=== PATIENT | male | born 1955 | race African-American/Black ===

== ENCOUNTER 2016-12-26 10:52 | Emergency (ER) | payer OTHER ==
[~2016-12-26] VITALS: Ht 177.8 cm; Wt 82.0 kg
[~2016-12-26 10:52] MED LIST: DICL50 PO; DOXY100T PO; SULF-154 PO
[2016-12-26 11:05] VITALS: BP 127/78; PULSE 98; RESP 20; TEMP 99.2; O2SAT 98
[2016-12-26] MEDS ORDERED: HTN MED PO (11:20)
[2016-12-26] MEDS ORDERED: MOBI15TA PO (11:20)
[2016-12-26] MEDS ORDERED: METO25TA3 PO (11:20)
[2016-12-26] MEDS ORDERED: SODIUM CHLOR 0.9% 1000 ML INJ 1,000 ML IV ONE (11:47)
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
[2016-12-26] MEDS ORDERED: ACETAMINOPHEN/HYDROcodone 325 MG/5 MG TAB PO ONE (12:00)
[2016-12-26] MEDS ORDERED: SODIUM CHLORIDE 0.9% FLUSH 10 ML FLUSH IVF PRN (12:00)
[2016-12-26 12:31] LABS: AUTOMATED NEUTROPHIL # 3.3 TH/MM3 (1.8-7.7); BASOPHIL % 0.3 % (0.0-2.0); EOSINOPHIL % 0.2 % (0.0-4.0); HEMO FLAGS DIFF FINAL; LYMPH % 22.7 % (9.0-44.0); LYMPHOCYTE # 1.1 TH/MM3 (1.0-4.8); MEAN CELL VOLUME 92.2 FL (80.0-100.0); MEAN CORPUSCULAR HEMOGLOBIN 30.4 PG (27.0-34.0); MEAN CORPUSCULAR HGB CONC 32.9 % (32.0-36.0); MONO % 8.7 % (0.0-8.0); NEUT % 68.1 % (16.0-70.0); PLATELET COUNT 188 TH/MM3 (150-450); RED BLOOD COUNT 4.99 MIL/MM3 (4.50-5.90); RED CELL DISTRIBUTION WIDTH 14.5 % (11.6-17.2); WHITE BLOOD COUNT 4.9 TH/MM3 (4.0-11.0)
[2016-12-26 12:38] LABS: PROTHROMBIN TIME - PATIENT 10.9 SEC (9.8-11.6)
[2016-12-26 12:42] LABS: APTT (PATIENT) 25.4 SEC (24.3-30.1)
[2016-12-26 13:15] VITALS: RESP 17
[2016-12-26 13:19] LABS: ALT (GPT) 42 U/L (12-78); ANION GAP 9 MEQ/L (5-15); AST (GOT) 49 U/L (15-37); BICARBONATE 24.8 MEQ/L (21.0-32.0); CHLORIDE 102 MEQ/L (98-107); GLOMERULAR FILTRATION RATE 87 ML/MIN (>89); MAGNESIUM 1.8 MG/DL (1.5-2.5); POTASSIUM 4.4 MEQ/L (3.5-5.1); SODIUM (NA) 136 MEQ/L (136-145)
[2016-12-26 13:22] LABS: ALKALINE PHOSPHATASE 43 U/L (45-117); CREATINE KINASE 194 U/L (39-308); TOTAL BILIRUBIN ADULT 0.4 MG/DL (0.2-1.0)
[2016-12-26 13:24] LABS: BLOOD UREA NITROGEN 21 MG/DL (7-18)
[2016-12-26 13:40] LABS: CKMB 1.4 NG/ML (0.5-3.6)
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
--- NOTE | 2016-12-26 13:52 | RADRPT ---
EXAM DATE/TIME: 12/26/2016 12:45 [facility] COMPARISON: No previous studies available for comparison. INDICATIONS : Chest pain post fall. MEDICAL HISTORY : None. SURGICAL HISTORY : None. ENCOUNTER: Initial ACUITY: 1 day PAIN SCORE: 8/10 LOCATION: Right upper chest FINDINGS: The exam demonstrates a small area of linear atelectasis in the right midlung field. The lungs are ot herwise clear. The heart is normal in size. The bony structures are intact. CONCLUSION: Small area of linear atelectasis on the right. The exam is otherwise unremarkable. Brice Almaguer MD on December 26, 2016 at 13:49 Board Certified Radiologist. This report was verified electronically.
--- NOTE | 2016-12-26 18:57 | EKG ---
Date Performed: 12/26/2016 Time Performed: 11:08:20 PTAGE: 61 years EKG: Sinus rhythm POSSIBLE LEFT ATRIAL ENLARGEMENT BORDERLINE ECG NO PREVIOUS TRACING DOCTOR: Hector Rome Interpretating Date/Time 12/26/2016 18:55:41
== END 2016-12-26 14:31 | disposition home or self-care (01) ==
LOC: NEPC 10:52
DX: T67.1XXA Heat syncope, initial encounter (principal); R07.89 Other chest pain; F17.210 Nicotine dependence, cigarettes, uncomplicated; I10 Essential (primary) hypertension
CPT/HCPCS: 70450; 71010; 80053; 82550; 82552; 83735; 83880; 84484; 85025; 85610; 85730; 93005; 96360; 99285; J7030

== ENCOUNTER → 2017-03-21 | Day surgery (SDC) | payer OTHER ==
[~2017-03-21] VITALS: Ht 177.8 cm; Wt 79.8 kg
[~2017-03-21] MED LIST changes: +*ONDANSETRON 4 MG VIAL PERIprocedural Use ONLY ONE; +*morphine SULFATE 8 MG/ML PERIprocedure ONLY ONE; +ACETAMINOPHEN 1000 MG/100 ML 0 ML IV ONE; +ACETAMINOPHEN 1000 MG/100 ML 100 ML IV SCH; +AMLO5TAB2 PO; +BUPIVACAINE/EPINEPHRINE 0.25% 50 ML VIAL ONE; +CHLORHEXIDINE GLUCONATE 2 % 1 PACK (2 CLOTHS) TOPICAL PRN; +DEXAMETHASONE SOD PHOS 4 MG/ML VIAL IV ONE; -DICL50 PO; +DO NOT ADM ANY ANTICOAGULANT DRUGS PRN; -DOXY100T PO; +GLYCOPYRROLATE 1 MG/5 ML SYRINGE IV PUSH ONE; +IOHEXOL 300 MG/ML 50 ML BTL (for RAD DIAG) IVCONTRAST ONE; +KETOROLAC TROMETHAMINE 30 MG/ML (IVP) VIAL IV PUSH ONE; +LACTATED RINGER'S 1000 ML INJ 1,000 ML IV ONE; +LACTATED RINGER'S 1000 ML IV PRN; +LEVO750T3 PO; +LIDOCAINE HCL 1% PF 5 ML AMPULE OTHER ONE; +METO50TA PO; +METOPROLOL TARTRATE 25 MG TAB PO PRN; +METR-1 PO; +MOBI15TA PO; +MORPHINE SULFATE 4 MG/ML INJ IV PUSH PRN; +NEOSTIGMINE 3 MG/3 ML SYR IV ONE; +ONDANSETRON HCL 4 MG/2 ML VIAL IV PUSH ONE; +ONDANSETRON HCL 4 MG/2 ML VIAL IV PUSH PRN; +OXYC1TAB63 PO; +POVIDONE IODINE 5% (ANTISEPSIS KIT) 4 APPLICATIONS EACH NARE PRN; +PROMETHAZINE INJ 25 MG/ML VIAL ONE; +PROPOFOL 200 MG/20 ML AMP IV ONE; +ROCURONIUM INJ 50 MG/5 ML SYRINGE IV PUSH ONE; +SODIUM CHLORID 0.9% 500 ML IV PRN; -SULF-154 PO; +ZOFR4TAB3 SL; +ceFAZolin 2 GM PREMIX 50 ML IV SCH; +diphenhydrAMINE HCL 50 MG/ML VIAL ONE; +ePHEDrine/NS 25 MG/5 ML SYR IV ONE; +metroNIDAZOLE 500 MG INJ 100 ML IV SCH; +oxyCODONE/ACETAMINOPHEN 5 MG/325 MG TAB PO PRN
--- NOTE | 2017-03-21 11:26 | PD.OP ---
cc: Willie Causey MD Operative Report Date of Surgery: Mar 21, 2017 Preoperative Diagnosis: (1) Gallbladder mass (2) Umbilical hernia (3) Ventral hernia Postoperative Diagnosis: (1) Umbilical hernia (2) Ventral hernia (3) Gallbladder mass Procedure: laparoscopic cholecystectomy with intraoperative cholangiogram [facility] Surgeon: Willie Causey Diabetes Manager(s): Bayron HOGUE Operation and Findings: EBL: 10cc Operative findings: The gallbladder was thin-walled. The fundal mass seen on MRI appeared benign and was easily dissected from the liver bed. The patient had an umbilical hernia and a right upper quadrant ventral hernia. Both had incarcerated fat. Unfortunately, bile was spilled from the gallbladder during dissection and, therefore, I opted not to proceed with mesh repair. The patient will be brought back within a week for ventral hernia repair with mesh. The intraoperative cholangiogram revealed dilated common bile duct. Procedure in detail: The patient was taken to the operating room placed in supine position. Gen. endotracheal anesthesia was induced and the abdomen was prepped and draped in usual sterile fashion. The arms were tucked. A surgical timeout was performed to verify correct patient procedure and site. Local anesthetic was injected in skin and subcutaneous tissues tissue in the left upper abdomen and a 5 mm incision made. The abdomen was entered directly with the laparoscope and insufflated to 15 mmHg with CO2 gas which the patient tolerated well. He was placed in reverse Trendelenburg position. A 5 mm port was placed just to the right of the umbilicus. A 12 mm port was placed in the epigastrium and a 5 mm port in the right upper abdomen and a 5 mm port in the right lateral abdomen. The dome of the gallbladder was grasped and retracted cephalad. The gallbladder was thin-walled. The mass seen on MRI in the fundus of the gallbladder did not appear worrisome. It was not firm or invading the liver. Omental adhesions to the gallbladder were taken down with the Harmonic scalpel. Unfortunately, a hole was made in the side of the gallbladder and bile spilled. No stones spilled.The cystic duct and artery were dissected carefully using the Harmonic scalpel. The cystic artery was divided with the Harmonic scalpel. The cystic duct was seen to be clearly entering the gallbladder and it was cut [facility] across. The cholangiogram catheter was placed through a separate stab incision in the right upper quadrant into the cystic duct. A 1-1 ratio of Omnipaque and saline was injected through the catheter and fluoroscopy performed. There were no filling defects. The duodenum filled easily. The right and left hepatic ducts were visible. The common duct was significantly dilated. 2 clips were then placed proximally and one distally on the cystic duct and it was transected. The gallbladder was taken off of the liver bed using a harmonic scalpel. There was no leakage from the cystic duct and the liver bed was dry. The right upper quadrant was copiously irrigated. I did take down preperitoneal fat in the epigastrium including a portion of the falciform ligament. A 1-2 cm umbilical hernia was identified with preperitoneal fat incarcerated. The incarcerated fat was reduced. In the right upper abdomen the internal hernia was identified and the preperitoneal fat was incarcerated. I decided not to perform a mesh repair at this time due to spillage of bile from the gallbladder. Therefore, I left the preperitoneal fat incarcerated in the right upper quadrant hernia. I will plan to perform laparoscopic ventral hernia repair with mesh within the next week. At this point, the trochars were removed and the abdomen desufflated. Skin was closed with subcuticular 4-0 Monocryl and Steri-Strips. The patient tolerated the procedure well and was extubated and taken to PACU in stable condition. Willie Causey MD Mar 21, 2017 11:26
[2017-03-21 13:15] VITALS: BP 120/75; PULSE 63; RESP 20; TEMP 97; O2SAT 94
--- NOTE | 2017-03-22 08:40 | RADRPT ---
EXAM DATE/TIME: 03/21/2017 09:58 [facility] COMPARISON: No previous studies available for comparison. INDICATIONS : Obstruction. FLUORO TIME: 1.25 minutes IMAGE COUNT: 1 MEDICAL HISTORY : None. SURGICAL HISTORY : None. ENCOUNTER: Initial ACUITY: 1 day PAIN SCORE: Non-responsive. LOCATION: Right upper quadrant PROCEDURE: CHOLANGIOGRAM, OPERATIVE 1. Intraoperative cholangiogram. In the operating room, the cystic duct stump was injected and radiographs obtained. The examination demonstrates a lesion of the cystic duct with opacification of the common bile duct. The proximal common bile duct is mildly dilated and the common hepatic duct is dilated. The central a spect of the left and right intrahepatic ducts are mildly distended but demonstrate no significant ab normality. The distal half of the common bile duct demonstrates an ovoid filling defect that moves sl ightly during real-time imaging. Contrast flows easily into the second portion of the duodenum. There is reflux of contrast out of the cystic duct into either the remaining gallbladder or representing e xtravasation. CONCLUSION: 1. There is an ovoid filling defect in the distal common bile duct which likely represents an air duncan ble. Review of the outside MRI demonstrated no stone within the common bile duct or gallbladder. 2. Dilated common bile and common hepatic duct. Cal Abraham MD on March 22, 2017 at 8:28 Board Certified Radiologist. This report was verified electronically.
== END | disposition home or self-care (01) ==
LOC: HSDC 05:15 → UNDOADMIN 05:15 → HSDI 05:15 → EDSTATUS 08:30
PROVIDERS: ATTEND Surgery
DX: K80.20 Calculus of gallbladder without cholecystitis without obstruction (principal); K82.8 Other specified diseases of gallbladder; K43.9 Ventral hernia without obstruction or gangrene; K42.9 Umbilical hernia without obstruction or gangrene
CPT/HCPCS: 00790; 47562; 74300; 88304; J0131; J0690; J1100; J1200; J1885; J2270; J2405; J2550; J2710; J3010; J7120; Q9967

== ENCOUNTER 2017-03-22 16:54 | Inpatient (IN) | payer OTHER ==
[~2017-03-22] VITALS: Ht 177.8 cm; Wt 79.9 kg
[~2017-03-22 16:54] MED LIST changes: -*ONDANSETRON 4 MG VIAL PERIprocedural Use ONLY ONE; -*morphine SULFATE 8 MG/ML PERIprocedure ONLY ONE; -ACETAMINOPHEN 1000 MG/100 ML 0 ML IV ONE; -ACETAMINOPHEN 1000 MG/100 ML 100 ML IV SCH; -BUPIVACAINE/EPINEPHRINE 0.25% 50 ML VIAL ONE; -CHLORHEXIDINE GLUCONATE 2 % 1 PACK (2 CLOTHS) TOPICAL PRN; -DO NOT ADM ANY ANTICOAGULANT DRUGS PRN; -IOHEXOL 300 MG/ML 50 ML BTL (for RAD DIAG) IVCONTRAST ONE; -KETOROLAC TROMETHAMINE 30 MG/ML (IVP) VIAL IV PUSH ONE; -LACTATED RINGER'S 1000 ML INJ 1,000 ML IV ONE; -LACTATED RINGER'S 1000 ML IV PRN; -LEVO750T3 PO; -METOPROLOL TARTRATE 25 MG TAB PO PRN; -METR-1 PO; +MIDAZOLAM HCL 2 MG/2 ML VIAL IV ONE; -MOBI15TA PO; -MORPHINE SULFATE 4 MG/ML INJ IV PUSH PRN; -ONDANSETRON HCL 4 MG/2 ML VIAL IV PUSH PRN; +PHENYLEPH/NS 1000 MCG/10 ML SYR IV ONE; -POVIDONE IODINE 5% (ANTISEPSIS KIT) 4 APPLICATIONS EACH NARE PRN; -PROMETHAZINE INJ 25 MG/ML VIAL ONE; -SODIUM CHLORID 0.9% 500 ML IV PRN; +SUCCINYLCHOLINE CHLORIDE 100 MG/5 ML SYRINGE IV PUSH ONE; -ZOFR4TAB3 SL; -ceFAZolin 2 GM PREMIX 50 ML IV SCH; -diphenhydrAMINE HCL 50 MG/ML VIAL ONE; -ePHEDrine/NS 25 MG/5 ML SYR IV ONE; -metroNIDAZOLE 500 MG INJ 100 ML IV SCH; -oxyCODONE/ACETAMINOPHEN 5 MG/325 MG TAB PO PRN
[2017-03-22 16:55] VITALS: BP 138/74; PULSE 80; RESP 20; TEMP 98.9; O2SAT 99
[2017-03-22 17:10] VITALS: BP 134/81; PULSE 91; RESP 20; TEMP 98.4
[2017-03-22] MEDS ORDERED: HYDROmorphone HCL PF 1 MG/ML VIAL IVS ONE (17:15)
[2017-03-22] MEDS ORDERED: SODIUM CHLOR 0.9% 1000 ML INJ 1,000 ML IV ONE ×2 (17:15→21:30)
[2017-03-22] MEDS ORDERED: ONDANSETRON HCL 4 MG/2 ML VIAL IV PUSH ONE ×2 (17:15→20:00)
[2017-03-22] MEDS: SODIUM CHLORIDE 0.9% FLUSH 10 ML FLUSH IV FLUSH PRN (17:27)
--- NOTE | 2017-03-22 17:27 | PD ---
HPI Chief Complaint: Nausea/ vomiting Time Seen by Provider: 17:03 Travel History International Travel<30 days: No Contact w/Intl Traveler<30days: No Traveled to known affect area: No History of Present Illness HPI 61-year-old male presents to the ED for evaluation of 10/10 abdominal pain with nausea and vomiting. Onset "a few hours ago" worsening throughout the day. Patient endorses a few episodes of streaky hematemesis. He has not had a bowel movement since his surgery. He also complains of left-sided chest pain without associated palpitations, shortness of breath, cough. Patient underwent laparoscopic cholecystectomy with Dr. Causey yesterday. His called the office today and was referred to the ED. PFSH Past Medical History Cancer: No Cardiovascular Problems: No Diabetes: No Diminished Hearing: Yes (DOES NOT WEAR HEARING AIDS) Endocrine: No Genitourinary: No Hepatitis: No Hiatal Hernia: No Hypertension: Yes Immune Disorder: No Musculoskeletal: Yes (arthritis, chronic back pain) Neurologic: No (recent syncopal episode from heat-2 months ago) Psychiatric: No Reproductive: No Respiratory: No Thyroid Disease: No Past Surgical History Abdominal Surgery: Yes (UMBILICAL HERNIA, CHOLECYSTECTOMY) AICD: No Cardiac Surgery: No Ear Surgery: No Endocrine Surgery: No Eye Surgery: No Genitourinary Surgery: No Gynecologic Surgery: No Joint Replacement: No Oral Surgery: No Pacemaker: No Thoracic Surgery: No Social History Alcohol Use: Yes (RARE) Tobacco Use: Yes (2 CIGARETTES DAILY) Substance Use: Yes (marijuana) Allergies-Medications (Allergen,Severity, Reaction): Uncoded Allergies: SHELLFISH (Allergy, Severe, Anaphylaxis, 03/21/17) Reported Meds & Prescriptions Reported Meds & Active Scripts Active Oxycodone-Acetaminophen 5-325 mg Tab 1-2 Tab PO Q4H PRN Reported Amlodipine (Amlodipine Besylate) 5 Mg Tab 5 Mg PO DAILY Metoprolol Tartrate 50 Mg Tab 50 Mg PO BID Review of Systems Except as stated in HPI: all other systems reviewed are Neg Physical Exam Narrative GENERAL: Well-nourished, well-developed ill-appearing black male in no acute distress. SKIN: Focused skin assessment warm/dry. There is a warm, raised, tender, erythematous area below the umbilicus measuring approximately 8 x 10 cm. HEAD: Normocephalic. EYES: No scleral icterus. No injection or drainage. NECK: Supple, trachea midline. No JVD or lymphadenopathy. CARDIOVASCULAR: Regular rate and rhythm without murmurs, gallops, or rubs. RESPIRATORY: Breath sounds equal bilaterally. No accessory muscle use. GASTROINTESTINAL: Abdomen soft, mildly distended, diffusely tender, painful bulge noted superior and right of the umbilicus. Hypoactive bowel sounds. Exam somewhat limited by the patient's pain. MUSCULOSKELETAL: No cyanosis, or edema. BACK: Nontender without obvious deformity. No CVA tenderness. Data Data Last Documented VS Vital Signs Date Time Temp Pulse Resp B/P (MAP) Pulse Ox O2 Delivery O2 Flow Rate FiO2 03/22/17 17:28 98.4 74 16 119/77 (91) 99 Nasal Cannula 2.00 Orders Orders ^ Insert Iv (03/22/17 17:03) Ondansetron Inj (Zofran Inj) (03/22/17 17:15) Sodium Chlor 0.9% 1000 Ml Inj (Ns 1000 M (03/22/17 17:15) Complete Blood Count With Diff (03/22/17 17:14) Comprehensive Metabolic Panel (03/22/17 17:14) Lactic Acid (03/22/17 17:14) Prothrombin Time / Inr (Pt) (03/22/17 17:14) Act Partial Throm Time (Ptt) (03/22/17 17:14) Urinalysis - C+S If Indicated (03/22/17 17:14) Ecg Monitoring (03/22/17 17:14) Oximetry (03/22/17 17:14) Sodium Chloride 0.9% Flush (Ns Flush) (03/22/17 17:15) Electrocardiogram (03/22/17 17:14) Hydromorphone Pf Inj (Dilaudid Pf Inj) (03/22/17 17:15) Ct Abd/Pel W Iv Contrast(Rout) (03/22/17 17:18) Blood Culture (03/22/17 17:21) Ckmb (Isoenzyme) Profile (03/22/17 17:24) Troponin I (03/22/17 17:24) Ct Pulmonary Angiogram (03/22/17 17:25) CKMB (03/22/17 17:20) CKMB% (03/22/17 17:20) Chest, Single Ap (03/22/17 ) Ondansetron Inj (Zofran Inj) (03/22/17 20:00) Hydromorphone Pf Inj (Dilaudid Pf Inj) (03/22/17 20:00) Iohexol 350 Inj (Omnipaque 350 Inj) (03/22/17 20:42) Admit Order (Ed Use Only) (03/22/17 21:15) Metronidazole 500 Mg Inj (Flagyl 500 Mg (03/22/17 21:15) Levofloxacin 750 Mg Premix Inj (Levaquin (03/22/17 21:15) Labs Laboratory Tests Test 03/22/17 17:20 03/22/17 19:00 White Blood Count 12.3 TH/MM3 Red Blood Count 5.28 MIL/MM3 Hemoglobin 16.5 GM/DL Hematocrit 48.8 % Mean Corpuscular Volume 92.5 FL Mean Corpuscular Hemoglobin 31.2 PG Mean Corpuscular Hemoglobin Concent 33.7 % Red Cell Distribution Width 13.7 % Platelet Count 241 TH/MM3 Mean Platelet Volume 7.8 FL Neutrophils (%) (Auto) 73.0 % Lymphocytes (%) (Auto) 20.0 % Monocytes (%) (Auto) 6.6 % Eosinophils (%) (Auto) 0.0 % Basophils (%) (Auto) 0.4 % Neutrophils # (Auto) 8.9 TH/MM3 Lymphocytes # (Auto) 2.5 TH/MM3 Monocytes # (Auto) 0.8 TH/MM3 Eosinophils # (Auto) 0.0 TH/MM3 Basophils # (Auto) 0.0 TH/MM3 CBC Comment DIFF FINAL Differential Comment Prothrombin Time 11.4 SEC Prothromb Time International Ratio 1.0 RATIO Activated Partial Thromboplast Time 26.7 SEC Lactic Acid Level 3.0 mmol/L Total Creatine Kinase 566 U/L Creatine Kinase MB 1.4 NG/ML Creatine Kinase MB % 0.2 % Troponin I LESS THAN 0.02 NG/ML Blood Urea Nitrogen 12 MG/DL Creatinine 1.01 MG/DL Random Glucose 99 MG/DL Total Protein 7.1 GM/DL Albumin 3.2 GM/DL Calcium Level 8.5 MG/DL Alkaline Phosphatase 60 U/L Aspartate Amino Transf (AST/SGOT) 69 U/L Alanine Aminotransferase (ALT/SGPT) 82 U/L Total Bilirubin 0.4 MG/DL Sodium Level 138 MEQ/L Potassium Level 4.0 MEQ/L Chloride Level 102 MEQ/L Carbon Dioxide Level 27.6 MEQ/L Anion Gap 8 MEQ/L Estimat Glomerular Filtration Rate 91 ML/MIN MDM Medical Decision Making Medical Screen Exam Complete: Yes Emergency Medical Condition: Yes Differential Diagnosis Paralytic ileus versus incarcerated hernia versus peritonitis versus bowel obstruction versus pneumonia versus PE versus other Narrative Course 61-year-old male presents to the ED for evaluation of 10/10 abdominal pain with nausea and vomiting. Onset "a few hours ago" worsening throughout the day. Patient endorses a few episodes of streaky hematemesis. He has not had a bowel movement since his surgery. He also complains of left-sided chest pain without associated palpitations, shortness of breath, cough. Patient underwent laparoscopic cholecystectomy with Dr. Causey yesterday. His called the office today and was referred to the ED. patient's afebrile on presentation. Physical exam reveals an ill-appearing black male in no acute distress. He has diffuse tenderness of the abdomen with a noted tender mass just superior and to the right of the umbilicus. Also notable for small bulge of the umbilicus with a large surrounding area of warm and tender erythema. Exam was somewhat limited due to the patient's discomfort. IV was established. Patient was administered 1 mg morphine, 4 mg Zofran, 1 L normal saline. I reviewed Dr. robert operative note which reveals that there was some bile spillage during the laparoscopic cholecystectomy. Dr. Causey was unable to perform the planned umbilical and ventral hernia repairs. EKG rate 90, sinus rhythm. ME interval 158, QRS 74, QTC 394. Normal axis. No ST changes. Reviewed by Dr. Parker. Cardiac enzymes negative 1 CXR: No acute disease. CBC: WBC 12.3. Hemoglobin 16.5. INR 1.0. Lactic acid 3.0. CMP: AST 69, ALT 82. UA: Pending. CT abdomen and pelvis: 1. Small bowel obstruction secondary to a herniated loop of small bowel within an umbilical hernia. There are 2 umbilical hernias. The more inferior umbilical hernia contains the herniated small bowel. The slightly more cephalad umbilical hernia contains omental fat. 2. Dilatation of the intrahepatic and extrahepatic biliary system as detailed above. This is unchanged from the intraoperative study. This is more prominent than what is expected in a post cholecystectomy patient. At some point an MRCP would be beneficial to further evaluate. 3. 2.3 cm left adrenal gland nodule not consistent with a lipid rich adenoma. This could relate to a lipid poor adenoma or lesion of other etiology. Outpatient MRI is suggested to further evaluate. CTA chest: No PE, bibasilar atelectasis per radiology read. I discussed the results of the CT with the patient and his family. Dr. Causey is at bedside and plans surgery tonight. Patient will be admitted to the surgical service. Please see their notes for disposition. Vonda Chaney Mar 22, 2017 17:27
[2017-03-22 17:28] VITALS: BP 119/77; PULSE 74; PULSE 82; RESP 16; TEMP 98.4; O2SAT 99
--- NOTE | 2017-03-22 17:44 | PD ---
Physical Exam Date Seen by Provider: Mar 22, 2017 Narrative Vomiting Data Data Last Documented VS Vital Signs Date Time Temp Pulse Resp B/P (MAP) Pulse Ox O2 Delivery O2 Flow Rate FiO2 03/22/17 17:28 98.4 74 16 119/77 (91) 99 Nasal Cannula 2.00 Orders Orders ^ Insert Iv (03/22/17 17:03) Ondansetron Inj (Zofran Inj) (03/22/17 17:15) Sodium Chlor 0.9% 1000 Ml Inj (Ns 1000 M (03/22/17 17:15) Complete Blood Count With Diff (03/22/17 17:14) Comprehensive Metabolic Panel (03/22/17 17:14) Lactic Acid (03/22/17 17:14) Prothrombin Time / Inr (Pt) (03/22/17 17:14) Act Partial Throm Time (Ptt) (03/22/17 17:14) Urinalysis - C+S If Indicated (03/22/17 17:14) Ecg Monitoring (03/22/17 17:14) Oximetry (03/22/17 17:14) Sodium Chloride 0.9% Flush (Ns Flush) (03/22/17 17:15) Electrocardiogram (03/22/17 17:14) Hydromorphone Pf Inj (Dilaudid Pf Inj) (03/22/17 17:15) Ct Abd/Pel W Iv Contrast(Rout) (03/22/17 17:18) Blood Culture (03/22/17 17:21) Ckmb (Isoenzyme) Profile (03/22/17 17:24) Troponin I (03/22/17 17:24) Ct Pulmonary Angiogram (03/22/17 17:25) MDM Supervised Visit with STEWART: Yes Narrative Course I, Dr. Parker, have reviewed the advance practice practitioner's documentation and am in agreement, met with the patient face to face, made the diagnosis, and the medical decision making was done by me. *My assessment and Findings: This patient is having frequent emesis. He looks very uncomfortable. He has a fairly large area of erythema one of the surgical wounds below the umbilicus. He is complaining with both chest pain and abdominal pain/vomiting. He is status post surgery yesterday. He will have a CT for PE as well as a CT of his abdomen and pelvis. Please see Vonda Chaney PA-C's note for results of laboratory and radiographic evaluation, ED course, final diagnosis and disposition Ambika Parker MD Mar 22, 2017 17:44
[2017-03-22 17:55] LABS: AUTOMATED NEUTROPHIL # 8.9 TH/MM3 (1.8-7.7); BASOPHIL % 0.4 % (0.0-2.0); HEMATOCRIT 48.8 % (39.0-51.0); HEMO FLAGS DIFF FINAL; LYMPHOCYTE # 2.5 TH/MM3 (1.0-4.8); MEAN CELL VOLUME 92.5 FL (80.0-100.0); MEAN CORPUSCULAR HEMOGLOBIN 31.2 PG (27.0-34.0); MEAN CORPUSCULAR HGB CONC 33.7 % (32.0-36.0); MONO % 6.6 % (0.0-8.0); PLATELET COUNT 241 TH/MM3 (150-450); RED BLOOD COUNT 5.28 MIL/MM3 (4.50-5.90); RED CELL DISTRIBUTION WIDTH 13.7 % (11.6-17.2); WHITE BLOOD COUNT 12.3 TH/MM3 (4.0-11.0)
[2017-03-22 18:01] LABS: APTT (PATIENT) 26.7 SEC (24.3-30.1); PROTHROMBIN TIME - PATIENT 11.4 SEC (9.8-11.6)
[2017-03-22 18:09] LABS: CREATINE KINASE 566 U/L (39-308)
[2017-03-22 18:22] LABS: CKMB 1.4 NG/ML (0.5-3.6)
[2017-03-22 19:00] VITALS: BP 143/84; PULSE 71; RESP 16; O2SAT 98
--- NOTE | 2017-03-22 19:06 | RADRPT ---
EXAM DATE/TIME: 03/22/2017 19:00 [facility] COMPARISON: CHEST SINGLE AP, December 26, 2016, 12:45. INDICATIONS : Shortness of breath. MEDICAL HISTORY : None. SURGICAL HISTORY : None. ENCOUNTER: Initial ACUITY: 1 day PAIN SCORE: 0/10 LOCATION: Bilateral chest FINDINGS: A single view of the chest demonstrates the lungs to be symmetrically aerated without evidence of mas s, infiltrate or effusion. Linear scarring within the right midlung. The cardiomediastinal contours a re unremarkable. Osseous structures are intact. CONCLUSION: No acute disease. Angelo Hester Jr., MD on March 22, 2017 at 19:04 Board Certified Radiologist. This report was verified electronically.
--- NOTE | 2017-03-22 19:32 | EKG ---
Date Performed: 03/22/2017 Time Performed: 17:14:57 PTAGE: 61 years EKG: Sinus rhythm LEFT ATRIAL ENLARGEMENT ABNORMAL ECG INTERPRETATION BASED ON A DEFAULT AGE OF 40 YEARS No significan t change from prior electrocardiogram. PREVIOUS TRACING : 12/26/201603.22 DOCTOR: Hector Rome Interpretating Date/Time 03/22/2017 19:31:46
[2017-03-22] MEDS ORDERED: HYDROmorphone HCL PF 0.5 MG/0.5 ML SYRINGE IV PUSH ONE (20:00)
[2017-03-22 20:08] LABS: ALT (GPT) 82 U/L (12-78)
[2017-03-22 20:09] LABS: ALKALINE PHOSPHATASE 60 U/L (45-117); ANION GAP 8 MEQ/L (5-15); AST (GOT) 69 U/L (15-37); BICARBONATE 27.6 MEQ/L (21.0-32.0); BLOOD UREA NITROGEN 12 MG/DL (7-18); CHLORIDE 102 MEQ/L (98-107); GLOMERULAR FILTRATION RATE 91 ML/MIN (>89); SODIUM (NA) 138 MEQ/L (136-145); TOTAL BILIRUBIN ADULT 0.4 MG/DL (0.2-1.0)
[2017-03-22] MEDS ORDERED: IOHEXOL 350 MG/ML 10 ML VIAL (for RAD DIAG) IVCONTRAST ONE (20:42)
--- NOTE | 2017-03-22 20:49 | RADRPT ---
EXAM DATE/TIME: 03/22/2017 20:29 [facility] COMPARISON: No previous studies available for comparison. INDICATIONS : Chest pain and vomiting. Status-post cholecystectomy yesterday. IV CONTRAST: 100 cc Omnipaque 350 (iohexol) IV ; Cumulative dose for multiple exams. RADIATION DOSE: 10.19 CTDIvol (mGy) MEDICAL HISTORY : None SURGICAL HISTORY : Cholecystectomy. Hernia repair. ENCOUNTER: Initial ACUITY: 1 day PAIN SCALE: 5/10 LOCATION: chest TECHNIQUE: Volumetric scanning of the chest was performed using a pulmonary embolism protocol MIP images were re constructed. Using automated exposure control and adjustment of the mA and/or kV according to patien t size, radiation dose was kept as low as reasonably achievable to obtain optimal diagnostic quality images. DICOM format image data is available electronically for review and comparison. Follow-up recommendations for detected pulmonary nodules are based at a minimum on nodule size and pa tient risk factors according to Fleischner Society Guidelines. FINDINGS: PULMONARY ARTERIES: No filling defects are seen in the pulmonary arteries through the segmental level. LUNGS: Bibasilar dependent atelectasis. No acute infiltrate. Small subpleural blebs involving the apices aleisha aterally. No mass. PLEURAE: There is no pleural thickening or pleural effusion. MEDIASTINUM: A small hiatal hernia. Heart is at the upper limits of normal in terms of size. A small amount of flu id within the superior epicardial recess. Aorta and pulmonary arteries are normal in caliber. No peyman opathy. MUSCULOSKELETAL: Within normal limits for patient age. MISCELLANEOUS: See the CT of the abdomen and pelvis reported separately. CONCLUSION: 1. No pulmonary emboli. 2. Bibasilar atelectasis. Angelo Hester Jr., MD on March 22, 2017 at 20:45 Board Certified Radiologist. This report was verified electronically.
--- NOTE | 2017-03-22 21:05 | RADRPT ---
EXAM DATE/TIME: 03/22/2017 20:29 [facility] COMPARISON: CHOLANGIOGRAM OPERATIVE, March 21, 2017, 9:58. INDICATIONS : Chest pain with fever. Status-post cholecystectomy yesterday. IV CONTRAST: 100 cc Omnipaque 350 (iohexol) IV ; Cumulative dose for multiple exams. ORAL CONTRAST: No oral contrast ingested. RADIATION DOSE: 16.21 CTDIvol (mGy) MEDICAL HISTORY : None SURGICAL HISTORY : Cholecystectomy. Hernia repair. ENCOUNTER: Initial ACUITY: 1 day PAIN SCALE: 2/10 LOCATION: upper quadrant TECHNIQUE: Volumetric scanning of the abdomen and pelvis was performed. Using automated exposure control and ad justment of the mA and/or kV according to patient size, radiation dose was kept as low as reasonably achievable to obtain optimal diagnostic quality images. DICOM format image data is available electro nically for review and comparison. FINDINGS: LOWER LUNGS: See the CT of the thorax dictated separately. LIVER: Multiple tiny hepatic cysts are seen. The gallbladder is surgically absent. There is prominence to th e intrahepatic and to a greater degree extrahepatic biliary system. The common bile duct reaches a ma ximum diameter of 1.6 cm. It tapers at the level of the ampulla. No obstructing mass or stone observe d. The pancreatic duct is mildly dilated measuring 5 mm. Overall the appearance of the biliary system is unchanged from the prior ERCP. SPLEEN: Normal size without lesion. PANCREAS: Within normal limits. KIDNEYS: Normal in size and shape. There is no mass, stone or hydronephrosis. ADRENAL GLANDS: There is a 2.3 cm nodule involving the left adrenal gland. Hounsfield units are 100. Right adrenal gl and is unremarkable. VASCULAR: There is no aortic aneurysm. BOWEL/MESENTERY: Dilated small bowel observed. This extends down to a more inferior umbilical hernia with where the ca liber change occurs secondary to the herniated small bowel. Colon is decompressed as is the distal sm all bowel. No free air or free fluid. Slightly more cephalad is an umbilical hernia that contains ome ntal fat. ABDOMINAL WALL: 2 umbilical hernias. The more cephalad contains omental fat. The more inferior contains a loop of sma ll bowel. RETROPERITONEUM: There is no lymphadenopathy. BLADDER: A small volume of air is seen within the lumen of urinary bladder. No wall thickening. REPRODUCTIVE: Within normal limits. INGUINAL: There is no lymphadenopathy or hernia. MUSCULOSKELETAL: Within normal limits for patient age. CONCLUSION: 1. Small bowel obstruction secondary to a herniated loop of small bowel within an umbilical hernia. T here are 2 umbilical hernias. The more inferior umbilical hernia contains the herniated small bowel. The slightly more cephalad umbilical hernia contains omental fat. 2. Dilatation of the intrahepatic and extrahepatic biliary system as detailed above. This is unchange d from the intraoperative study. This is more prominent than what is expected in a post cholecystecto my patient. At some point an MRCP would be beneficial to further evaluate. 3. 2.3 cm left adrenal gland nodule not consistent with a lipid rich adenoma. This could relate to a lipid poor adenoma or lesion of other etiology. Outpatient MRI is suggested to further evaluate. Angelo Hester Jr., MD on March 22, 2017 at 20:51 Board Certified Radiologist. This report was verified electronically.
[2017-03-22] MEDS ORDERED: LEVOFLOXACIN 750 MG PREMIX INJ 150 ML IV ONE (21:15)
[2017-03-22] MEDS ORDERED: metroNIDAZOLE 500 MG INJ 100 ML IV ONE (21:15)
[2017-03-22 21:30] VITALS: BP 156/94; PULSE 60; RESP 16; TEMP 98; O2SAT 100
--- NOTE | 2017-03-22 21:33 | HHI.HP ---
HPI Service General Surgery Primary Care Physician Pedro Rm M.D. Admission Diagnosis small bowel obstruction, inguinal hernia Chief Complaint: Abdominal pain, vomiting History of Present Illness Mr. Clinton underwent laparoscopic cholecystectomy with IOC yesterday by me. We had planned ventral hernia repair but due to bile spillage during the operation we opted to plan a second operation this Monday for lap ventral hernia repair with mesh. Unfortunately, early this morning he began to develop severe abdominal pain. His called the office late afternoon and noted pain, swelling at the umbilicus, and inability to eat. He began vomiting and has vomited multiple times, sometimes bloody. He also c/o substernal chest pain which has resolved. WBC is 12. LA is 3.0. CT a/p shows incarcerated umbilical hernia with small bowel obstruction. CTA shows no PE. Review of Systems Constitutional: DENIES: Fever, Chills Eyes: DENIES: Eye inflammation, Eye pain Respiratory: DENIES: Cough Cardiovascular: COMPLAINS OF: Chest pain, DENIES: Palpitations, Lower Extremity Edema Gastrointestinal: COMPLAINS OF: Abdominal pain, Nausea, Vomiting Musculoskeletal: DENIES: Back pain, Neck pain Integumentary: DENIES: Pruritus, Rash Neurologic: DENIES: Paresthesias, Seizures Past Family Social History Past Medical History HTN Left adrenal mass Past Surgical History Lap cathy with IOC yesterday Reported Medications Reported Meds & Active Scripts Active Oxycodone-Acetaminophen 5-325 mg Tab 1-2 Tab PO Q4H PRN Reported Amlodipine (Amlodipine Besylate) 5 Mg Tab 5 Mg PO DAILY Metoprolol Tartrate 50 Mg Tab 50 Mg PO BID Allergies: Uncoded Allergies: SHELLFISH (Allergy, Severe, Anaphylaxis, 03/21/17) Active Ordered Medications Current Medications Medications (Trade) Dose Ordered Sig/Lenard Route Start Time Stop Time Status Last Admin (NS Flush) 2 ml UNSCH PRN IV FLUSH 03/22/17 17:15 03/22/17 17:27 Metronidazole 100 ml @ 100 mls/hr ONCE ONCE IV 03/22/17 21:15 03/22/17 22:14 Levofloxacin/ Dextrose 150 ml @ 100 mls/hr ONCE ONCE IV 03/22/17 21:15 03/22/17 22:44 Family History Noncontributory Social History Rare ETOH. + Marijuana. Smokes 2 cigarettes daily. Physical Exam Vital Signs Vital Signs Date Time Temp Pulse Resp B/P (MAP) Pulse Ox O2 Delivery O2 Flow Rate FiO2 03/22/17 17:28 98.4 74 16 119/77 (91) 99 Nasal Cannula 2.00 03/22/17 17:28 98.4 82 16 119/77 (91) 99 Nasal Cannula 2.00 03/22/17 17:14 91 20 98 Nasal Cannula 2.00 03/22/17 17:10 98.4 91 20 134/81 (98) 03/22/17 16:55 98.9 80 20 138/74 (95) 99 Room Air Physical Exam GENERAL: Awake and alert. Cooperative. Uncomfortable. HEAD: Normocephalic. Atraumatic. EYES: Pupils equal round and reactive to light bilaterally. No scleral icterus. CHEST: Nonlabored breathing. No respiratory distress. CARDIOVASCULAR: Regular rate and rhythm. ABDOMEN: Very distended. Mild diffuse ttp. Skin surrounding umbilicus is erythematous. Umbilical hernia tender to palpation EXTREMITIES: No cyanosis or edema. SKIN: Warm, dry, nonjaundiced. Laboratory Laboratory Tests Test 03/22/17 17:20 03/22/17 19:00 White Blood Count 12.3 Red Blood Count 5.28 Hemoglobin 16.5 Hematocrit 48.8 Mean Corpuscular Volume 92.5 Mean Corpuscular Hemoglobin 31.2 Mean Corpuscular Hemoglobin Concent 33.7 Red Cell Distribution Width 13.7 Platelet Count 241 Mean Platelet Volume 7.8 Neutrophils (%) (Auto) 73.0 Lymphocytes (%) (Auto) 20.0 Monocytes (%) (Auto) 6.6 Eosinophils (%) (Auto) 0.0 Basophils (%) (Auto) 0.4 Neutrophils # (Auto) 8.9 Lymphocytes # (Auto) 2.5 Monocytes # (Auto) 0.8 Eosinophils # (Auto) 0.0 Basophils # (Auto) 0.0 CBC Comment DIFF FINAL Differential Comment Prothrombin Time 11.4 Prothromb Time International Ratio 1.0 Activated Partial Thromboplast Time 26.7 Lactic Acid Level 3.0 Total Creatine Kinase 566 Creatine Kinase MB 1.4 Creatine Kinase MB % 0.2 Troponin I LESS THAN 0.02 Blood Urea Nitrogen 12 Creatinine 1.01 Random Glucose 99 Total Protein 7.1 Albumin 3.2 Calcium Level 8.5 Alkaline Phosphatase 60 Aspartate Amino Transf (AST/SGOT) 69 Alanine Aminotransferase (ALT/SGPT) 82 Total Bilirubin 0.4 Sodium Level 138 Potassium Level 4.0 Chloride Level 102 Carbon Dioxide Level 27.6 Anion Gap 8 Estimat Glomerular Filtration Rate 91 Date/Time Source Procedure Growth Status 03/22/17 17:20 Blood Line Aerobic Blood Culture Pending Received 03/22/17 17:20 Blood Line Anaerobic Blood Culture Pending Received Result Diagram: 03/22/17 1720 03/22/17 [address] Angiography 03/22/17 1725 Signed Impressions: Service Date/Time: Wednesday, March 22, 2017 20:29 - CONCLUSION: 1. No pulmonary emboli. 2. Bibasilar atelectasis. Angelo Hester Jr., MD Abdomen/Pelvis CT 03/22/17 1718 Signed Impressions: Service Date/Time: Wednesday, March 22, 2017 20:29 - CONCLUSION: 1. Small bowel obstruction secondary to a herniated loop of small bowel within an umbilical hernia. There are 2 umbilical hernias. The more inferior umbilical hernia contains the herniated small bowel. The slightly more cephalad umbilical hernia contains omental fat. 2. Dilatation of the intrahepatic and extrahepatic biliary system as detailed above. This is unchanged from the intraoperative study. This is more prominent than what is expected in a post cholecystectomy patient. At some point an MRCP would be beneficial to further evaluate. 3. 2.3 cm left adrenal gland nodule not consistent with a lipid rich adenoma. This could relate to a lipid poor adenoma or lesion of other etiology. Outpatient MRI is suggested to further evaluate. Angelo Hester Jr., MD Chest X-Ray 03/22/17 0000 Signed Impressions: Service Date/Time: Wednesday, March 22, 2017 19:00 - CONCLUSION: No acute disease. MD Scot Pearl Jr. VTE Risk Assessment Scot VTE Risk Assessment: No/Low Risk (score <= 1) Caprini Risk Assessment Model Point Value = 1 Point Value = 2 Point Value = 3 Point Value = 5 Age 41-60 Minor surgery BMI > 25 kg/m2 Swollen legs Varicose veins or History of unexplained or recurrent spontaneous Oral contraceptives or hormone replacement Sepsis (< 1 month) Serious lung disease, including pneumonia (< 1 month) Abnormal pulmonary function Acute myocardial infarction Congestive heart failure (< 1 month) History of inflammatory bowel disease Medical patient at bed rest Age 61-74 Arthroscopic surgery Major open surgery (> 45 min) Laparoscopic surgery (> 45 min) Malignancy Confined to bed (> 72 hours) Immobilizing plaster cast Central venous access Age >= 75 History of VTE Family history of VTE Factor V Leiden Prothrombin [id number] Lupus anticoagulant Anticardiolipin antibodies Elevated serum homocysteine Heparin-induced thrombocytopenia Other congenital or acquired thrombophilia Stroke (< 1 month) Elective arthroplasty Hip, pelvis, or leg fracture Acute spinal cord injury (< 1 month) Prophylaxis Regimen Total Risk Factor Score Risk Level Prophylaxis Regimen 0-1 Low Early ambulation 2 Moderate Order ONE of the following: *Sequential Compression Device (SCD) *Heparin 5000 units SQ BID 3-4 Higher Order ONE of the following medications: *Heparin 5000 units SQ TID *Enoxaparin/Lovenox 40 mg SQ daily (WT < 150 kg, CrCl > 30 mL/min) *Enoxaparin/Lovenox 30 mg SQ daily (WT < 150 kg, CrCl > 10-29 mL/min) *Enoxaparin/Lovenox 30 mg SQ BID (WT < 150 kg, CrCl > 30 mL/min) AND/OR *Sequential Compression Device (SCD) 5 or more Highest Order ONE of the following medications: *Heparin 5000 units SQ TID (Preferred with Epidurals) *Enoxaparin/Lovenox 40 mg SQ daily (WT < 150 kg, CrCl > 30 mL/min) *Enoxaparin/Lovenox 30 mg SQ daily (WT < 150 kg, CrCl > 10-29 mL/min) *Enoxaparin/Lovenox 30 mg SQ BID (WT < 150 kg, CrCl > 30 mL/min) AND *Sequential Compression Device (SCD) Assessment and Plan Assessment and Plan 61 yo M POD 1 s/p lap cathy now with incarcerated umbilical hernia with small bowel obstruction. Plan to proceed to operating room tonight. Discussed details with the patient and his and they understand and desire to proceed. Willie Causey MD Mar 22, 2017 21:33
[2017-03-22 22:00] VITALS: BP 152/95; PULSE 65; RESP 16; O2SAT 98
[2017-03-22] MEDS ORDERED: METOPROLOL TARTRATE 25 MG TAB PO PRN (22:15)
[2017-03-22] MEDS ORDERED: POVIDONE IODINE 5% (ANTISEPSIS KIT) 4 APPLICATIONS EACH NARE PRN (22:15)
[2017-03-22] MEDS ORDERED: LACTATED RINGER'S 1000 ML IV PRN (22:15)
[2017-03-22] MEDS ORDERED: SODIUM CHLORID 0.9% 500 ML IV PRN (22:15)
[2017-03-22] MEDS ORDERED: CHLORHEXIDINE GLUCONATE 2 % 1 PACK (2 CLOTHS) TOPICAL PRN (22:15)
[2017-03-22] MEDS ORDERED: INSULIN HUMAN REGULAR 1,000 UNITS/10 ML VIAL SQ PRN (22:15)
[2017-03-22 22:25] LABS: BLOOD, URINE NEG (NEG); COMMENT (UR) CULT NOT INDICATED; CULTURE IF INDICATED CULT NOT INDICATED; GLUCOSE,URINE NEG (NEG); KETONE, URINE 10 mg/dL (NEG); NITRITE,URINE NEG (NEG); PH, URINE 7.5 (5.0-8.5); SQUAMOUS EPITHELIAL CELL URINE <1 /hpf (0-5); URINE COLOR LIGHT-YELLOW (YELLW/STRAW)
[2017-03-22] MEDS ORDERED: ACETAMINOPHEN 1000 MG/100 ML 100 ML IV ONE (23:28)
[2017-03-23] MEDS ORDERED: SUGAMMADEX SODIUM 200 MG/2 ML VIAL IV PUSH ONE ×2 (00:44)
[2017-03-23] MEDS ORDERED: KETOROLAC TROMETHAMINE 30 MG/ML (IVP) VIAL IV PUSH SCH (00:45)
[2017-03-23] MEDS ORDERED: MORPHINE SULFATE 4 MG/ML INJ IV PUSH PRN (00:45)
[2017-03-23] MEDS ORDERED: ENALAPRILAT 1.25 MG/ML VIAL IV PUSH PRN (00:45)
[2017-03-23] MEDS ORDERED: BENZOCAINE 20% ORAL SPR 60 ML CAN MT PRN (00:45)
[2017-03-23] MEDS ORDERED: diphenhydrAMINE HCL 50 MG/ML VIAL IV PUSH PRN (00:45)
[2017-03-23] MEDS ORDERED: SODIUM CHLORIDE 0.9% FLUSH 10 ML FLUSH IV FLUSH PRN (00:45)
[2017-03-23] MEDS ORDERED: NALOXONE HCL 0.4 MG/ML AMP IV PUSH PRN (00:45)
[2017-03-23] MEDS ORDERED: Post-op Orders (for Pharmacy) MISC XX ONE (00:45)
[2017-03-23] MEDS ORDERED: DO NOT ADM ANY ANTICOAGULANT DRUGS PRN (01:00)
[2017-03-23] MEDS: LACTATED RINGER'S 1000 ML INJ 1,000 ML IV SCH ×4 (01:05→14:56)
[2017-03-23] MEDS ORDERED: *morphine SULFATE 8 MG/ML PERIprocedure ONLY ONE ×2 (01:09→01:52)
[2017-03-23] MEDS ORDERED: *MEPERIDINE 25 MG INJ VIAL PERIprocedural Use ONLY ONE (01:10)
[2017-03-23] MEDS: SODIUM CHLORIDE 0.9% FLUSH 10 ML FLUSH IV FLUSH PRN (01:30)
[2017-03-23] MEDS: PANTOPRAZOLE SODIUM 40 MG VIAL IV PUSH SCH (02:00)
[2017-03-23] MEDS: MORPHINE SULFATE 4 MG/ML INJ IV PUSH PRN ×5 (04:20→21:44)
[2017-03-23] MEDS: metroNIDAZOLE 500 MG INJ 100 ML IV SCH ×3 (06:00→20:30)
[2017-03-23] MEDS: SODIUM CHLORIDE 0.9% FLUSH 10 ML FLUSH IV FLUSH SCH ×2 (07:30→20:30)
[2017-03-23] MEDS: KETOROLAC TROMETHAMINE 30 MG/ML (IVP) VIAL IV PUSH SCH ×3 (07:31→20:30)
[2017-03-23 08:00] LABS: BICARBONATE 25.7 MEQ/L (21.0-32.0); POTASSIUM 4.2 MEQ/L (3.5-5.1)
[2017-03-23] MEDS ORDERED: metroNIDAZOLE 500 MG INJ 100 ML IV SCH (08:00)
[2017-03-23] MEDS ORDERED: DIMETHICONE/OXYBENZONE/PADMIATE LIP BALM 4.25 GM TOPICAL ONE (08:23)
[2017-03-23] MEDS: ONDANSETRON HCL 4 MG/2 ML VIAL IV PUSH PRN ×3 (09:38→21:47)
--- NOTE | 2017-03-23 10:38 | HHI.PR ---
Subjective Subjective Notes Pain at umbilicus but overall feels better. Mild nausea. Objective Vitals/I&O Vital Signs Date Time Temp Pulse Resp B/P (MAP) Pulse Ox O2 Delivery O2 Flow Rate FiO2 03/23/17 09:40 98.6 69 17 149/67 (94) 94 Room Air 03/23/17 03:00 2 Labs Laboratory Tests Test 03/22/17 17:20 03/22/17 19:00 03/22/17 21:55 03/23/17 07:20 White Blood Count 12.3 Red Blood Count 5.28 Hemoglobin 16.5 Hematocrit 48.8 Mean Corpuscular Volume 92.5 Mean Corpuscular Hemoglobin 31.2 Mean Corpuscular Hemoglobin Concent 33.7 Red Cell Distribution Width 13.7 Platelet Count 241 Mean Platelet Volume 7.8 Neutrophils (%) (Auto) 73.0 Lymphocytes (%) (Auto) 20.0 Monocytes (%) (Auto) 6.6 Eosinophils (%) (Auto) 0.0 Basophils (%) (Auto) 0.4 Neutrophils # (Auto) 8.9 Lymphocytes # (Auto) 2.5 Monocytes # (Auto) 0.8 Eosinophils # (Auto) 0.0 Basophils # (Auto) 0.0 CBC Comment DIFF FINAL Differential Comment Prothrombin Time 11.4 Prothromb Time International Ratio 1.0 Activated Partial Thromboplast Time 26.7 Lactic Acid Level 3.0 Total Creatine Kinase 566 Creatine Kinase MB 1.4 Creatine Kinase MB % 0.2 Troponin I LESS THAN 0.02 Blood Urea Nitrogen 12 10 Creatinine 1.01 0.86 Random Glucose 99 111 Total Protein 7.1 Albumin 3.2 Calcium Level 8.5 7.7 Alkaline Phosphatase 60 Aspartate Amino Transf (AST/SGOT) 69 Alanine Aminotransferase (ALT/SGPT) 82 Total Bilirubin 0.4 Sodium Level 138 138 Potassium Level 4.0 4.2 Chloride Level 102 104 Carbon Dioxide Level 27.6 25.7 Anion Gap 8 8 Estimat Glomerular Filtration Rate 91 110 Urine Color LIGHT-YELLOW Urine Turbidity CLEAR Urine pH 7.5 Urine Specific Topmost GREATER THAN 1.050 Urine Protein NEG Urine Glucose (UA) NEG Urine Ketones 10 Urine Occult Blood NEG Urine Nitrite NEG Urine Bilirubin NEG Urine Urobilinogen LESS THAN 2.0 Urine Leukocyte Esterase NEG Urine RBC 1 Urine WBC LESS THAN 1 Urine Squamous Epithelial Cells <1 Microscopic Urinalysis Comment CULT NOT INDICATED Date/Time Source Procedure Growth Status 03/22/17 17:20 Blood Line Aerobic Blood Culture Pending Received 03/22/17 17:20 Blood Line Anaerobic Blood Culture Pending Received Radiology Last Impressions CT Angiography 03/22/17 1725 Signed Impressions: Service Date/Time: Wednesday, March 22, 2017 20:29 - CONCLUSION: 1. No pulmonary emboli. 2. Bibasilar atelectasis. Angelo Hester Jr., MD Abdomen/Pelvis CT 03/22/17 1718 Signed Impressions: Service Date/Time: Wednesday, March 22, 2017 20:29 - CONCLUSION: 1. Small bowel obstruction secondary to a herniated loop of small bowel within an umbilical hernia. There are 2 umbilical hernias. The more inferior umbilical hernia contains the herniated small bowel. The slightly more cephalad umbilical hernia contains omental fat. 2. Dilatation of the intrahepatic and extrahepatic biliary system as detailed above. This is unchanged from the intraoperative study. This is more prominent than what is expected in a post cholecystectomy patient. At some point an MRCP would be beneficial to further evaluate. 3. 2.3 cm left adrenal gland nodule not consistent with a lipid rich adenoma. This could relate to a lipid poor adenoma or lesion of other etiology. Outpatient MRI is suggested to further evaluate. Angelo Hester Jr., MD Chest X-Ray 03/22/17 0000 Signed Impressions: Service Date/Time: Wednesday, March 22, 2017 19:00 - CONCLUSION: No acute disease. Angelo Hester Jr., MD Narrative Exam NAD, comfortable in bed Abd: soft, distended, inc c/d/i, min NGT output. Erythema around umbilicus is stable A/P Assessment and Plan 61 yo M POD 3 s/p lap cathy with IOC and POD 1 s/p lap reduction and repair incarcerated umbilical hernia (small bowel) and ventral hernia (preperitoneal fat) Stable post op. D/c ng and romo. Clears. Cont toradol and morphine for pain. SCDs. Lovenox. Willie Causey MD Mar 23, 2017 10:38
--- NOTE | 2017-03-23 10:46 | PD.OP ---
cc: Willie Causey MD Operative Report Date of Surgery: Mar 23, 2017 Preoperative Diagnosis: (1) Incarcerated umbilical hernia (2) Small bowel obstruction (3) Incarcerated ventral hernia Postoperative Diagnosis: (1) Small bowel obstruction (2) Incarcerated ventral hernia (3) Incarcerated umbilical hernia Procedure: Laparoscopic reduction and repair of small bowel incarcerated umbilical hernia and fat incarcerated ventral hernia Anesthesia: JOANIE Surgeon: Willie Causey Bench Carpenter(s): Kiran PEREA Operation and Findings: EBL: 10cc Operative findings: Small bowel incarcerated in umbilical hernia with transition point causing small bowel obstruction. Able to be reduced laparoscopically. Omentum and preperitoneal fat incarcerated RUQ ventral hernia. There was large area of erythema on skin surrounding the umbilicus from the small bowel incarceration, therefore, I felt it would be risky to place mesh in this patient. I performed laparoscopic primary repair of the approx 2cm umbilical hernia and approx 2cm RUQ ventral hernia. Procedure in detail: The patient was taken to the operating room placed in supine position. Gen. endotracheal anesthesia was induced and the abdomen was prepped and draped in usual sterile fashion. Surgical timeout was performed to verify correct patient procedure and site. The patient had multiple trocar sites from a surgery on Monday. The left upper abdominal 5 mm port site was reopened and a 5 mm trocar placed under direct laparoscopic visualization. The abdomen was insufflated to 15 mmHg with CO2 gas which the patient tolerated well. The 12 mm epigastric port was reopened and the 12 mm port placed. The left lower abdominal 5 mm port was reopened and a 5 mm port placed. Upon inspection of the abdomen the proximal small bowel was very dilated. The small bowel was incarcerated in the umbilical hernia. There was a transition point present. The small bowel was able to be carefully reduced laparoscopically using outward pressure as well as pulling intra-abdominally. The portion of small bowel which was incarcerated was carefully inspected. It was congested but immediately began to peristalse. It was not ischemic. Large amount of preperitoneal and omental fat was reduced from a right upper quadrant abdominal hernia. The fat was removed from the abdomen and then using an Endo Catch bag. The patient had an approximately 12 x 12 cm area of erythema and skin thickening surrounding the umbilicus. Therefore, I felt it would be risky to place polypropylene mesh in this patient. I opted to perform primary repair of both ventral hernias. Using the core suture passer performed laparoscopic primarily. The umbilical hernia vertically with multiple simple interrupted 0 Vicryl sutures. Again, multiple simple interrupted 0 Vicryl sutures were placed using the core suture passer through a small stab incision overlying the right upper quadrant abdominal hernia which was closed horizontally due to the direction of the hernia. The closures were complete and without a large amount of tension. At this point the fascia of the 12 mm port site was closed with a single 0 Vicryl suture. The reopened the port sites were closed with 4-0 subcuticular Monocryl and Dermabond. The patient tolerated the procedure well and was extubated and taken to PACU in stable condition. Willie Causey MD Mar 23, 2017 10:46
[2017-03-23 12:00] VITALS: BP 147/78; PULSE 58; RESP 20; TEMP 98; O2SAT 95
[2017-03-23 16:00] VITALS: BP 132/80; PULSE 57; RESP 20; TEMP 98; O2SAT 95
[2017-03-23 20:00] VITALS: BP 144/81; PULSE 68; RESP 27; TEMP 98.5; O2SAT 95
[2017-03-23] MEDS: ENOXAPARIN SODIUM 40 MG/0.4 ML SYRINGE SQ SCH (20:33)
[2017-03-23] MEDS: LEVOFLOXACIN 750 MG PREMIX INJ 150 ML IV SCH (21:36)
[2017-03-24] VITALS (7 sets, daily range): BP systolic 123–152; BP diastolic 73–84; PULSE 54–76; RESP 12–23; TEMP 97.5–98.3; O2SAT 95–98
[2017-03-24] MEDS: KETOROLAC TROMETHAMINE 30 MG/ML (IVP) VIAL IV PUSH SCH ×4 (01:18→20:12)
[2017-03-24] MEDS: PANTOPRAZOLE SODIUM 40 MG VIAL IV PUSH SCH (01:18)
[2017-03-24] MEDS: MORPHINE SULFATE 4 MG/ML INJ IV PUSH PRN ×2 (01:23→06:28)
[2017-03-24] MEDS: LACTATED RINGER'S 1000 ML INJ 1,000 ML IV SCH (03:13)
[2017-03-24] MEDS: metroNIDAZOLE 500 MG INJ 100 ML IV SCH ×3 (05:08→22:14)
[2017-03-24] MEDS: SODIUM CHLORIDE 0.9% FLUSH 10 ML FLUSH IV FLUSH SCH ×2 (08:18→20:38)
--- NOTE | 2017-03-24 09:12 | HHI.PR ---
Subjective Subjective Notes Tolerating clears. No flatus. In some pain. Objective Vitals/I&O Vital Signs Date Time Temp Pulse Resp B/P (MAP) Pulse Ox O2 Delivery O2 Flow Rate FiO2 03/24/17 08:00 67 03/24/17 04:00 98.3 13 140/84 (102) 97 03/23/17 10:30 Room Air 03/23/17 03:00 2 Labs Date/Time Source Procedure Growth Status 03/22/17 17:20 Blood Line Aerobic Blood Culture - Preliminary NO GROWTH IN 1 DAY Resulted 03/22/17 17:20 Blood Line Anaerobic Blood Culture - Preliminary NO GROWTH IN 1 DAY Resulted Radiology Last Impressions CT Angiography 03/22/17 1725 Signed Impressions: Service Date/Time: Wednesday, March 22, 2017 20:29 - CONCLUSION: 1. No pulmonary emboli. 2. Bibasilar atelectasis. Angelo Hester Jr., MD Abdomen/Pelvis CT 03/22/17 1718 Signed Impressions: Service Date/Time: Wednesday, March 22, 2017 20:29 - CONCLUSION: 1. Small bowel obstruction secondary to a herniated loop of small bowel within an umbilical hernia. There are 2 umbilical hernias. The more inferior umbilical hernia contains the herniated small bowel. The slightly more cephalad umbilical hernia contains omental fat. 2. Dilatation of the intrahepatic and extrahepatic biliary system as detailed above. This is unchanged from the intraoperative study. This is more prominent than what is expected in a post cholecystectomy patient. At some point an MRCP would be beneficial to further evaluate. 3. 2.3 cm left adrenal gland nodule not consistent with a lipid rich adenoma. This could relate to a lipid poor adenoma or lesion of other etiology. Outpatient MRI is suggested to further evaluate. Angelo Hester Jr., MD Chest X-Ray 03/22/17 0000 Signed Impressions: Service Date/Time: Wednesday, March 22, 2017 19:00 - CONCLUSION: No acute disease. Angelo Hester Jr., MD Narrative Exam NAD, comfortable in bed Abd: soft, distended, inc c/d/i Erythema around umbilicus is stable A/P Assessment and Plan 61 yo M POD 3 s/p lap cathy with IOC and POD 2 s/p lap reduction and repair incarcerated umbilical hernia (small bowel) and ventral hernia (preperitoneal fat) Stable. not much bowel function. Clears. DC IVF. Add reglan. Await return of bowel function. Cont IV antibiotics due to persistent skin changes, although stable. SCDs. Lovenox. Willie Causey MD Mar 24, 2017 09:12
[2017-03-24] MEDS: METOCLOPRAMIDE HCL 10 MG/2 ML VIAL IV PUSH SCH ×2 (11:15→20:12)
[2017-03-24] MEDS: oxyCODONE/ACETAMINOPHEN 5 MG/325 MG TAB PO PRN ×3 (11:16→20:57)
[2017-03-24] MEDS: LEVOFLOXACIN 750 MG PREMIX INJ 150 ML IV SCH (22:14)
[2017-03-25 00:48] VITALS: BP 133/88; PULSE 64; RESP 20; TEMP 96.6; O2SAT 95
[2017-03-25] MEDS: PANTOPRAZOLE SODIUM 40 MG VIAL IV PUSH SCH (00:54)
[2017-03-25] MEDS: ENOXAPARIN SODIUM 40 MG/0.4 ML SYRINGE SQ SCH (00:55)
[2017-03-25] MEDS: KETOROLAC TROMETHAMINE 30 MG/ML (IVP) VIAL IV PUSH SCH ×4 (00:55→21:09)
[2017-03-25 04:00] VITALS: BP 141/93; PULSE 74; RESP 18; TEMP 96.8; O2SAT 98
[2017-03-25] MEDS: METOCLOPRAMIDE HCL 10 MG/2 ML VIAL IV PUSH SCH ×3 (04:02→18:12)
[2017-03-25] MEDS: metroNIDAZOLE 500 MG INJ 100 ML IV SCH ×3 (06:05→21:08)
[2017-03-25] MEDS: oxyCODONE/ACETAMINOPHEN 5 MG/325 MG TAB PO PRN ×3 (06:06→21:08)
[2017-03-25 08:00] VITALS: BP 130/85; PULSE 77; RESP 18; TEMP 96.9; O2SAT 96
[2017-03-25] MEDS: SODIUM CHLORIDE 0.9% FLUSH 10 ML FLUSH IV FLUSH SCH ×2 (09:00→21:08)
[2017-03-25] MEDS: ONDANSETRON HCL 4 MG/2 ML VIAL IV PUSH PRN (10:41)
[2017-03-25] MEDS ORDERED: LEVO750T3 PO (11:47)
[2017-03-25] MEDS ORDERED: METR-1 PO (11:47)
--- NOTE | 2017-03-25 11:49 | HHI.PR ---
Subjective Subjective Notes He is feeling much better. Pain is improved. He is tolerating clears and having flatus. Has been up moving around. Objective Vitals/I&O Vital Signs Date Time Temp Pulse Resp B/P (MAP) Pulse Ox O2 Delivery O2 Flow Rate FiO2 03/25/17 08:00 96.9 77 18 130/85 (100) 96 03/23/17 10:30 Room Air 03/23/17 03:00 2 Labs Date/Time Source Procedure Growth Status 03/22/17 17:20 Blood Line Aerobic Blood Culture - Preliminary NO GROWTH IN 3 DAYS Resulted 03/22/17 17:20 Blood Line Anaerobic Blood Culture - Preliminary NO GROWTH IN 3 DAYS Resulted Radiology Last Impressions CT Angiography 03/22/17 1725 Signed Impressions: Service Date/Time: Wednesday, March 22, 2017 20:29 - CONCLUSION: 1. No pulmonary emboli. 2. Bibasilar atelectasis. Angelo Hester Jr., MD Abdomen/Pelvis CT 03/22/17 1718 Signed Impressions: Service Date/Time: Wednesday, March 22, 2017 20:29 - CONCLUSION: 1. Small bowel obstruction secondary to a herniated loop of small bowel within an umbilical hernia. There are 2 umbilical hernias. The more inferior umbilical hernia contains the herniated small bowel. The slightly more cephalad umbilical hernia contains omental fat. 2. Dilatation of the intrahepatic and extrahepatic biliary system as detailed above. This is unchanged from the intraoperative study. This is more prominent than what is expected in a post cholecystectomy patient. At some point an MRCP would be beneficial to further evaluate. 3. 2.3 cm left adrenal gland nodule not consistent with a lipid rich adenoma. This could relate to a lipid poor adenoma or lesion of other etiology. Outpatient MRI is suggested to further evaluate. Angelo Hester Jr., MD Chest X-Ray 03/22/17 0000 Signed Impressions: Service Date/Time: Wednesday, March 22, 2017 19:00 - CONCLUSION: No acute disease. Angelo Hester Jr., MD Narrative Exam NAD, comfortable in bed Abd: soft, mildly distented, inc c/d/i Erythema around umbilicus is improving A/P Assessment and Plan 61 yo M POD 4 s/p lap cathy with IOC and POD 3 s/p lap reduction and repair incarcerated umbilical hernia (small bowel) and ventral hernia (preperitoneal fat) Stable. + flatus and much less distended. Soft diet. Likely dc home tomorrow if tolerating diet and has bowel movt. SCDs. Lovenox. Willie Causey MD Mar 25, 2017 11:49
[2017-03-25 12:00] VITALS: BP 140/82; PULSE 70; RESP 18; TEMP 96.2; O2SAT 96
[2017-03-25 16:00] VITALS: BP 134/88; PULSE 83; RESP 18; TEMP 97.4; O2SAT 95
[2017-03-25 19:56] VITALS: BP 142/89; PULSE 84; RESP 18; TEMP 99.4; O2SAT 98
[2017-03-25] MEDS: LEVOFLOXACIN 750 MG PREMIX INJ 150 ML IV SCH (22:15)
[2017-03-26 00:05] VITALS: BP 138/91; PULSE 74; RESP 18; TEMP 97.7; O2SAT 98
[2017-03-26] MEDS: ENOXAPARIN SODIUM 40 MG/0.4 ML SYRINGE SQ SCH (00:31)
[2017-03-26] MEDS: PANTOPRAZOLE SODIUM 40 MG VIAL IV PUSH SCH (01:34)
[2017-03-26] MEDS: oxyCODONE/ACETAMINOPHEN 5 MG/325 MG TAB PO PRN ×2 (01:36→10:58)
[2017-03-26] MEDS: KETOROLAC TROMETHAMINE 30 MG/ML (IVP) VIAL IV PUSH SCH ×2 (03:27→08:50)
[2017-03-26] MEDS: METOCLOPRAMIDE HCL 10 MG/2 ML VIAL IV PUSH SCH ×2 (03:27→10:58)
[2017-03-26 04:00] VITALS: BP 151/93; PULSE 75; RESP 17; TEMP 99.1; O2SAT 99
[2017-03-26] MEDS: metroNIDAZOLE 500 MG INJ 100 ML IV SCH (06:04)
[2017-03-26 08:00] VITALS: BP 154/99; PULSE 77; RESP 20; TEMP 98.8; O2SAT 100
[2017-03-26] MEDS: ONDANSETRON HCL 4 MG/2 ML VIAL IV PUSH PRN (08:48)
[2017-03-26] MEDS: SODIUM CHLORIDE 0.9% FLUSH 10 ML FLUSH IV FLUSH SCH (08:50)
[2017-03-26] MEDS ORDERED: ZOFR4TAB3 SL (09:16)
[2017-03-26] MEDS ORDERED: MAGNESIUM HYDROXIDE SUSP 30 ML CUP PO ONE (11:15)
[2017-03-26] MEDS ORDERED: BISACODYL EC 5 MG TABEC PO ONE (11:15)
== END 2017-03-26 11:47 | disposition home or self-care (01) | DRG 354 ==
LOC: NEPC 16:54 → NEDA 21:18 → HPAC 03-23 01:05 → N03B 03-23 10:40 → N06B 03-24 21:13
PROVIDERS: ADMIT Surgery; ATTEND Surgery
PROC: 0WQF4ZZ Repair Abdominal Wall, Percutaneous Endoscopic Approach (ICD-10-PCS; principal; 2017-03-23)
DX: K42.0 Umbilical hernia with obstruction, without gangrene (principal); K92.0 Hematemesis; J98.11 Atelectasis; K43.6 Other and unspecified ventral hernia with obstruction, without gangrene; I10 Essential (primary) hypertension; M54.9 Dorsalgia, unspecified; M19.90 Unspecified osteoarthritis, unspecified site; G89.29 Other chronic pain; E27.8 Other specified disorders of adrenal gland; H91.90 Unspecified hearing loss, unspecified ear; F17.210 Nicotine dependence, cigarettes, uncomplicated; Z91.013 Allergy to seafood
CPT/HCPCS: 71010; 71275; 74177; 80048; 80053; 81001; 82550; 82552; 83605; 84484; 85025; 85610; 85730; 87040; 93005; 94150; 96361; 96374; 96375; 96376; J1170; C9113; J0131; J0330; J1100; J1650; J1885; J1956; J2175; J2250; J2270; J2370; J2405; J2710; J2765; J3010; J7030; J7120; Q9967

== ENCOUNTER → 2017-10-27 | Outpatient (CLI) | payer OTHER ==
[~2017-10-27] MED LIST changes: -DEXAMETHASONE SOD PHOS 4 MG/ML VIAL IV ONE; -GLYCOPYRROLATE 1 MG/5 ML SYRINGE IV PUSH ONE; +LEVO750T3 PO; -LIDOCAINE HCL 1% PF 5 ML AMPULE OTHER ONE; +METR-1 PO; -MIDAZOLAM HCL 2 MG/2 ML VIAL IV ONE; -NEOSTIGMINE 3 MG/3 ML SYR IV ONE; -ONDANSETRON HCL 4 MG/2 ML VIAL IV PUSH ONE; -PHENYLEPH/NS 1000 MCG/10 ML SYR IV ONE; -PROPOFOL 200 MG/20 ML AMP IV ONE; -ROCURONIUM INJ 50 MG/5 ML SYRINGE IV PUSH ONE; -SUCCINYLCHOLINE CHLORIDE 100 MG/5 ML SYRINGE IV PUSH ONE; +TYLE325T PO; +ZOFR4TAB3 SL
== END ==
LOC: CPRE 08:54
PROVIDERS: ATTEND Orthopaedic Surgery Sports Medicine
DX: Z01.818 Encounter for other preprocedural examination (principal)

== ENCOUNTER → 2017-10-30 | Outpatient (CLI) | payer OTHER ==
[~2017-10-30] MED LIST changes: -LEVO750T3 PO; -METR-1 PO; -OXYC1TAB63 PO; -ZOFR4TAB3 SL
--- NOTE | 2017-10-30 16:25 | RADRPT ---
EXAM DATE: 10/30/2017 3:49 PM EDT AGE/SEX: 62 years / Male INDICATIONS: Evaluate for pneumonia, pneumothorax, or communicable disease. Pre op knee surgery. CLINICAL DATA: This is the patient's initial encounter. Patient reports that signs and symptoms have been present for 1 day and indicates a pain score of 0/10. MEDICAL/SURGICAL HISTORY: None. None. COMPARISON: No prior exams available for comparison. FINDINGS: PA and lateral views of the chest demonstrate the lungs to be symmetrically aerated without evidence of mass, infiltrate or effusion. Mild hyperinflation is evident. The cardiomediastinal contours are u nremarkable. Osseous structures are intact. CONCLUSION: Mild hyperinflation otherwise negative Electronically signed by: Arnaldo Almaguer MD 10/30/2017 4:24 PM EDT
== END ==
LOC: HRAD 15:21
PROVIDERS: ATTEND Orthopaedic Surgery Sports Medicine
DX: Z01.818 Encounter for other preprocedural examination (principal); M17.12 Unilateral primary osteoarthritis, left knee
CPT/HCPCS: 71046

== ENCOUNTER 2017-11-13 05:23 | Inpatient (IN) ==
[2017-11-13] MEDS ORDERED: TRANEXAMIC ACID IV.SIG SCH (06:00)
[2017-11-13] MEDS ORDERED: Vancomycin Inj 1 GM/200 ML PIGGYBACK IV.SIG SCH (06:00)
[2017-11-13] MEDS ORDERED: Sodium Chlor 0.9% Inj 73.07 ML, Ropivacaine 0.5% PF Inj 24.63 ML, Ketorolac Inj 30 MG, ... P-ARTICULR SCH ×10 (06:00→09:30)
[2017-11-13] MEDS ORDERED: Chlorhexidine 4% Topical 120 APPLIC/120 ML Bottle TOPICAL SCH (06:00)
[2017-11-13] MEDS ORDERED: SODIUM CHLOR 0.9% IV.SIG SCH (06:00)
[2017-11-13] MEDS ORDERED: Insulin NovoLIN Regular Correctional Sugar Inj SQ SCH (06:15)
[2017-11-13] MEDS ORDERED: Chlorhexidine Gluconate 2% 1 Pack (2 Cloths) TOPICAL SCH (06:15)
[2017-11-13] MEDS ORDERED: Metoprolol Tartrate 25 MG Tablet PO SCH (06:15)
[2017-11-13] MEDS: Dexamethasone Inj 20 MG/5 ML Vial IV.PUSH ONE ×2 (06:24→23:54)
[2017-11-13] MEDS ORDERED: Sodium Chlor 0.9% Inj 500 ML IV.SIG SCH (07:00)
[2017-11-13] MEDS ORDERED: Bupivacaine Liposomal PF 1.3% Inj 20 ML Vial ONE (07:33)
[2017-11-13] MEDS ORDERED: Bupivacaine PF 0.25% Inj 30 ML Vial ONE (07:34)
[2017-11-13] MEDS: ceFAZolin 2 GM Premix Inj 2 GM/50 ML PIGGYBACK IV.SIG SCH ×4 (07:45→21:11)
[2017-11-13] MEDS: Tranexamic Acid Inj 3,000 MG in Sodium Chlor 0.9% Inj 100 ML P-ARTICULR ONE ×2 (09:50→10:02)
[2017-11-13] MEDS ORDERED: fentaNYL Citrate Inj 100 MCG/2 ML Ampul ONE (10:55)
--- NOTE | 2017-11-13 10:57 | MP ---
cc: Rolly Carpenter MD DATE OF OPERATION: 11/13/2017 DATE OF PROCEDURE: 11/13/2017. PREOPERATIVE DIAGNOSIS: Left knee osteoarthritis. POSTOPERATIVE DIAGNOSIS: Left knee osteoarthritis. PROCEDURE PERFORMED: Left total knee arthroplasty. SURGEON: Rolly Carpenter MD PAN SHAKER: CINTHIA Sandoval. ANESTHESIA: General with femoral nerve block. ESTIMATED BLOOD LOSS: 50 mL TOURNIQUET TIME: 27 minutes at 250 mmHg. COMPLICATIONS: None. IMPLANTS USED: DePuy Attune size 6 posterior stabilized femoral component, size 7 rotating platform tibial baseplate, size 38 patella, size 10 mm polyethylene tibial insert. JUSTIFICATION: This patient is a 62-year-old male with history of severe osteoarthritis involving the left knee joint. He has severe issues with pain on standing, walking, ambulation, weight-bearing activities and severe pain at rest. He has failed greater than 3 months of nonoperative conservative treatment to include medication therapy, injections, ambulatory assistive aids, home exercise program, activity modification and weight loss. X-rays of the left knee reveal severe osteoarthritis with joint space narrowing, subchondral sclerosis, subchondral cyst, osteophyte formation, varus deformity with subluxation. The patient was counseled on the risks, benefits and alternatives to a total knee arthroplasty. The risks were discussed, which include but are not limited to anesthesia, bleeding, infection, damage to nerves and blood vessels, pain, stiffness, failure of the components, blood clots, swelling, pulmonary embolism and even . The patient's pain is severe. He favored the benefits over the risks and he did wish to proceed with surgery. PROCEDURE IN DETAIL: Written consent was obtained. The patient was identified by name, taken to the operating room and placed in supine on the operating room table. General anesthesia was administered as well as 2 grams of Ancef and 1 gram of IV vancomycin. A well-padded tourniquet was placed on the left thigh, the left lower extremity prepped and draped using isopropyl, alcohol, Hibiclens solution and ChloraPrep solution. After a timeout was performed, an Esmarch bandage was used to exsanguinate the left lower extremity and tourniquet inflated to 250 mmHg. A longitudinal incision was made over the anterior aspect of the left knee. A medial parapatellar arthrotomy was performed. The patella was everted. A patellar resection guide used to resect 9 mm off the patella. The size 38 mm guide was placed and three drill holes were placed. The 38 mm trial fit well. Attention was turned to the femur where an intramedullary guide was placed and the distal femoral guide was set to remove 11 mm of distal femur, 5 degrees off the anatomic valgus axis alignment. Oscillating saw was used to perform the distal femoral cut. Attention was turned to the tibia. An extramedullary tibial guide was set to remove 5 mm off the lowest portion of the medial tibial plateau. The tibial guide was pinned in place and tibial cut was performed. A 5 mm spacer block showed full extension. Attention was turned back to the femur. The AP sizer was marked to measure size 6. Anterior reference 3-degree external rotation guide was used to pin a size [address] Anterior, posterior and chamfer cuts were performed. A size 6 PCL box guide was pinned in place and PCL was boxed out an oscillating saw. The medial and lateral meniscus remnants were removed as well as bone and soft tissue debris from the posterior portion of the knee. A size 7 tibial base was pinned in place and the tibia was drilled and punched. All trial components were evaluated and final components cemented in place. With the correct components the leg could achieve full extension to 0 degrees, flexion to 140. No evidence of tibial liftoff. Varus, valgus and balance appeared appropriate and symmetric, and the patella was noted to track centrally. Tourniquet deflated. Bovie cautery was used for hemostasis. The surgical wound was thoroughly irrigated with sterile saline and pulse lavage antibiotic impregnated saline solution. The arthrotomy incision was closed with #1 Vicryl suture and 0 Vicryl suture, the subcutaneous layer with 2-0 Vicryl suture. The skin was closed with Dermabond. Sterile dressing applied. The patient tolerated the procedure well with no intraoperative complications noted. Davi Gamez, physician graduate assistant athletic trainer certified, was present through the entire procedure to include patient positioning and the procedure itself. The medical necessity of a physician graduate assistant athletic trainer was indicated in this case due to the complexity of the procedure. He assisted with appropriate manipulation of the leg and also retraction of muscle, tendon, bone and neurovascular structures. He assisted with preparation of bone and also implantation of the prosthetic replacement. MD EARLENE Smalls/JEAN PAUL , 10:30 AM , 10:55 AM
[2017-11-13] MEDS ORDERED: *morphine SULFATE 10 MG/ML PERIprocedure ONLY ONE (10:59)
[2017-11-13] MEDS ORDERED: Bisacodyl 10 MG Supp RECTAL PRN (11:39)
--- NOTE | 2017-11-13 12:07 | XR ---
EXAM DATE: 11/13/2017 12:04 PM EDT AGE/SEX: 62 years / Male INDICATIONS: Post op total left knee. CLINICAL DATA: This is the patient's initial encounter. Patient reports that signs and symptoms have been present for 1 day and indicates a pain score of Nonresponsive. MEDICAL/SURGICAL HISTORY: Osteoarthritis. None. COMPARISON: No prior exams available for comparison. FINDINGS: Views left knee are obtained. Central venous emphysema and postsurgical changes. Left knee arthroplas ty. No hardware loosening or fracture. CONCLUSION: Left knee arthroplasty. Electronically signed by: Xander Ridley MD 11/13/2017 12:05 PM EDT
[2017-11-13] MEDS ORDERED: Post-op Orders (for Pharmacy) OTHER STA (12:55)
[2017-11-13] MEDS ORDERED: HYDROmorphone PF Inj 1 MG/ML Ampul IV.PUSH PRN (13:15)
[2017-11-13] MEDS ORDERED: Ketorolac Inj 30 MG/ML (IVP) Vial IV.PUSH ONE (15:01)
[2017-11-13] MEDS ORDERED: Phenylephrine/NS 1000 MCG/10ML Syringe IV.PUSH ONE (15:01)
[2017-11-13] MEDS ORDERED: Lidocaine PF 1% Inj 5 ML Syringe INFILTRATN ONE (15:01)
[2017-11-13] MEDS ORDERED: Zolpidem Tartrate 5 MG Tablet PO PRN (21:00)
[2017-11-13] MEDS: Multivitamin/Minerals Therapeutic Tablet PO SCH (21:11)
[2017-11-13] MEDS: Senna/Docusate Sodium 8.6/50 MG Tablet PO SCH (21:11)
[2017-11-13] MEDS: Metoprolol Tartrate 50 MG Tablet PO SCH (23:50)
[2017-11-13] MEDS: amLODIPine 5 MG Tablet PO SCH (23:51)
[2017-11-14] MEDS: ceFAZolin 2 GM Premix Inj 2 GM/50 ML PIGGYBACK IV.SIG SCH (01:36)
[2017-11-14 06:24] LABS: Hematocrit 38.4 % (39.0-51.0); Hemoglobin 12.9 gm/dL (13.0-17.0)
[2017-11-14 06:42] LABS: Anion Gap 10 meq/L (5-15); Blood Urea Nitrogen 12 mg/dL (7-18); Calcium 8.4 mg/dL (8.5-10.1); Carbon Dioxide 26.5 meq/L (21.0-32.0); Chloride 103 meq/L (98-107); Glomerular Filtration Rate Greater Than 89 mL/min (>89); Glucose,Random 97 mg/dL (74-106); Potassium 4.1 meq/L (3.5-5.1); Sodium 139 meq/L (136-145)
--- NOTE | 2017-11-14 08:05 | P.PNOP ---
Subjective Interval history: doing well. in room. ready to go home. Physical Exam Vital signs: Vital Signs 11/13/17 10:48 11/13/17 11:00 11/13/17 11:15 Temperature 97.5 F L Pulse Rate 70 73 71 Respiratory Rate 17 25 H 11 L Blood Pressure 137/80 140/89 123/76 Pulse Oximetry 100 100 99 11/13/17 11:30 11/13/17 11:45 11/13/17 12:00 Temperature Pulse Rate 73 70 68 Respiratory Rate 14 12 9 L Blood Pressure 124/76 117/77 115/71 Pulse Oximetry 100 100 100 11/13/17 12:15 11/13/17 12:30 11/13/17 13:16 Temperature 97.5 F L 97.2 F L Pulse Rate 63 65 71 Respiratory Rate 12 16 16 Blood Pressure 120/76 114/77 116/72 Pulse Oximetry 100 100 11/13/17 16:00 11/13/17 20:00 11/14/17 00:00 Temperature 97.1 F L 97.5 F L 97.8 F Pulse Rate 57 L 65 60 Respiratory Rate 16 20 17 Blood Pressure 116/72 123/75 116/73 Pulse Oximetry 98 100 97 11/14/17 03:35 Temperature 98.8 F Pulse Rate 80 Respiratory Rate 17 Blood Pressure 122/74 Pulse Oximetry 97 Intake & Output 11/13/17 11/14/17 11/14/17 18:59 06:59 18:59 Intake Total 2411.775 / 2411.775 2300 / 2300 Output Total 1200 / 1200 1000 / 1000 Balance 1211.775 / 4283.101 7488 / 1300 Weight 177.8 kg Intake: IV 291.775 / 723.661 8896 / 1100 LR 1000 mL Inj 1,000 ML @ 80 1000 / 1000 mls/hr IV.CONT .[id number] [facility] Rx# :[id number] Ancef 2 GM Premix Inj 2 gm In 100 / 100 100 / 100 50 ml @ 100 mls/hr IV.SIG Q6H [facility] Rx#:[id number] Oral 720 / 720 1200 / 1200 Anesthesia Amount 1400 / 1400 Output: Urine 1050 / 1050 1000 / 1000 Estimated Blood Loss 150 / 150 Other: # Voids 2 # Incontinent Voids 1 Date of Last Bowel Movement 11/13/17 # Bowel Movements 0 Narrative: in bed, nad dressing c/d/i neg homans nvi - Constitutional no acute distress Assessment and Plan - Ortho Post Op Day # 1 - Problem List (1) Primary localized osteoarthrosis, lower leg Code(s): M17.10 - Unilateral primary osteoarthritis, unspecified knee Status: Acute - Assessment and Plan s/p L TKA wbat ok to maintain dressing unless saturated lovenox, d/c on asa 81 d/c planning home with [facility] and pt f/up dr. bailey 2 weeks
--- NOTE | 2017-11-14 08:24 | P.DCO ---
- Physical Therapy Physical Therapy: Gait training, Safety evaluation Knee: Total knee, Protocol: Left, Full weight bearing Left Lower Extremity Weight Bearing: Weight bearing as tolerated - Nursing RN: 3 days/week x 2 weeks Nursing: Dressing changes Dressing changes: Daily dressing change - Certification Need for Home Health services: I have seen patient Pedro Clinton on 11/14/17. My clinical findings support the need for the requested home health care services because: Need for Home Health Services: Limited ability to care for self, High risk of falls Homebound Certification: I certify that my clinical findings support that this patient is homebound because: Homebound Certification: Post-op weakness, Unsteady gait/balance
[2017-11-14] MEDS ORDERED: Enoxaparin Inj 40 MG/0.4 ML Syringe SQ SCH (09:00)
[2017-11-14] MEDS: Multivitamin/Minerals Therapeutic Tablet PO SCH (09:05)
[2017-11-14] MEDS: Metoprolol Tartrate 50 MG Tablet PO SCH (09:05)
[2017-11-14] MEDS: Senna/Docusate Sodium 8.6/50 MG Tablet PO SCH (09:05)
[2017-11-14] MEDS: amLODIPine 5 MG Tablet PO SCH (09:05)
--- NOTE | 2017-11-14 16:29 | P.CONIM ---
History of Present Illness Service: [facility] Consult date: 11/14/17 Requesting Physician: Rolly Carpenter Reason for Consult: MEDICAL MANAGEMENT Primary Care Provider: DR PREET CHAPMAN Chief Complaint: Medical management History of Present Illness: Patient is a 62-year-old -Citizen Of [place] gentleman. Who underwent a left total knee arthroplasty with Dr. Carpenter on November 13, 2017. Patient tolerated the procedure well. We have been asked to consult regarding medical management. Past medical history is significant for osteoarthritis and hypertension. Patient was seen earlier today around 10:30 AM. And has already been discharged by orthopedic surgery to home. Review of Systems All other systems reviewed negative except as stated in HPI Constitutional: Denies anorexia, Denies body ache(s), Denies fatigue, Denies fever(s), Denies malaise, Denies night sweats Ears, Nose, Mouth, and Throat: Denies abnormal hearing, Denies bleeding gums, Denies difficulty swallowing, Denies dizziness, Denies mouth lesions, Denies mouth pain Cardiovascular: Denies chest pain, Denies chest pain at rest, Denies shortness of breath with activity, Denies shortness of breath causing sudden awakening Respiratory: Denies change in phlegm color, Denies excessive phlegm production, Denies shortness of breath Gastrointestinal: Denies abdominal pain, Denies difficulty swallowing, Denies vomiting blood Genitourinary: Denies decreased urination Musculoskeletal: Reports abnormal walking, Reports joint pain, Reports limited joint movement, Denies muscle cramps, Denies muscle weakness Skin/Breast: Denies acne, Denies bleeding lesions, Denies change in skin color, Denies changing lesions Neurologic: Denies abnormal hearing, Denies abnormal movements, Denies frequent falls Psychiatric: Denies memory loss, Denies seeing things others do not see Endocrine: Denies cold intolerance, Denies increased hunger, Denies rapid, pounding, or irregular heartbeat Hematologic/Lymphatic: Denies easy bleeding, Denies easy bruising Allergic/Immunologic: Denies GI upset with certain foods, Denies throat swelling PMFSH - History History Provided By: Patient - Medical History Medical History: Medical History (Last Updated 11/01/17 @ 12:47 by Vianca Neville RN) Arthritis Decreased vision Diminished hearing Hypertension - Surgical History Surgical History: Surgical History (Last Updated 11/13/17 @ 06:47 by Janneth Hawthorne) History of hand surgery Hx of cholecystectomy - Tobacco History Second Hand Smoke Exposure: No Tobacco Use In Past 30 Days: No Smoking Status: Former smoker Tobacco Type: Cigarettes - Alcohol History How Often Do You Have a Drink Containing Alcohol: Never - Substance Use History Substance History: Active Abuse - Substance Use Type Marijuana Status: Active Route Used: Inhalation Frequency: few days ago Reason for Use: Calm Down - Travel History Recent Travel in the [place] Within the Last 8 Weeks: No Recent Travel Out of the Country Within the Last 8 Weeks: No - Immunization History Tetanus Immunization: Unsure Hx Influenza Vaccine This Season: No Medications and Allergies Allergies Allergy/AdvReac Type Severity Reaction Status Date / Time shellfish derived Allergy Anaphylaxis Verified 11/01/17 14:32 Home Medications Medication Instructions Recorded Confirmed Type amlodipine [Norvasc] 5 mg PO DAILY 11/01/17 11/13/17 History metoprolol tartrate 50 mg PO BID 11/01/17 11/13/17 History Exam Vital signs: Vital Signs 11/13/17 20:00 11/14/17 00:00 11/14/17 03:35 Temperature 97.5 F L 97.8 F 98.8 F Pulse Rate 65 60 80 Respiratory Rate 20 17 17 Blood Pressure 123/75 116/73 122/74 Pulse Oximetry 100 97 97 11/14/17 08:00 11/14/17 12:00 Temperature 98 F 98 F Pulse Rate 67 75 Respiratory Rate 16 19 Blood Pressure 136/74 132/74 Pulse Oximetry 98 99 Intake & Output 11/13/17 11/14/17 11/14/17 18:59 06:59 18:59 Intake Total 2411.775 / 2411.775 2300 / 2300 Output Total 1200 / 1200 1000 / 1000 Balance 1211.775 / 3920.113 8168 / 1300 Weight 177.8 kg Intake: IV 291.775 / 433.085 7234 / 1100 LR 1000 mL Inj 1,000 ML @ 80 1000 / 1000 mls/hr IV.CONT .[id number] [facility] Rx# :[id number] Ancef 2 GM Premix Inj 2 gm In 100 / 100 100 / 100 50 ml @ 100 mls/hr IV.SIG Q6H [facility] Rx#:[id number] Oral 720 / 720 1200 / 1200 Anesthesia Amount 1400 / 1400 Output: Urine 1050 / 1050 1000 / 1000 Estimated Blood Loss 150 / 150 Other: # Voids 2 # Incontinent Voids 1 Date of Last Bowel Movement 11/13/17 11/13/17 # Bowel Movements 0 Narrative: GENERAL: Awake alert and oriented 3 talkative and cooperative SKIN: Warm and dry. Left knee is dressed HEAD: Atraumatic. Normocephalic. EYES: Pupils equal and round. No scleral icterus. No injection or drainage. ENT: No nasal bleeding or discharge. Mucous membranes pink and moist. Extraocular muscles intact NECK: Trachea midline. No JVD. Tongue is midline CARDIOVASCULAR: Regular rate and rhythm. S1-S2 no S3 or S4 RESPIRATORY: No accessory muscle use. Clear to auscultation. Breath sounds equal bilaterally. GASTROINTESTINAL: Abdomen soft, non-tender, nondistended. Hepatic and splenic margins not palpable. MUSCULOSKELETAL: Extremities without clubbing, cyanosis, or edema. No obvious deformities. Left knee is dressed NEUROLOGICAL: Awake and alert. No obvious cranial nerve deficits. Motor grossly within normal limits. Five out of 5 muscle strength in the arms and legs. Normal speech. Left knee is dressed PSYCHIATRIC: Appropriate mood and affect; insight and judgment normal. Results - Labs CBC & Chem 7: 11/14/17 05:36 11/14/17 05:36 Labs: Laboratory Results - last 24 hr 11/14/17 11/14/17 05:36 05:36 Hgb 12.9 L Hct 38.4 L Sodium 139 Potassium 4.1 Chloride 103 Carbon Dioxide 26.5 Anion Gap 10 BUN 12 Creatinine 0.89 Estimated GFR Greater than 89 Random Glucose 97 Calcium 8.4 L - Imaging ITS Impressions Knee X-Ray 11/13/17 11:38 CONCLUSION: Left knee arthroplasty. Assessment and Plan - Assessment (1) Hypertension Code(s): I10 - Essential (primary) hypertension Status: Chronic (2) Primary localized osteoarthrosis, lower leg Code(s): M17.10 - Unilateral primary osteoarthritis, unspecified knee Status: Chronic - Plan Status post left total knee arthroplasty has been cleared by orthopedics. And will be going home later today with home health care Hypertension resume home medications Osteoarthritis resume pain control Anticoagulation per orthopedic surgery Patient will be discharged home later today and has already been discharged and can be discharged and follow-up with orthopedics and primary care physician (2) Primary localized osteoarthrosis, lower leg Qualifiers: Laterality: left Qualified Code(s): M17.12 - Unilateral primary osteoarthritis, left knee
--- NOTE | 2017-11-16 09:37 | MD ---
cc: Rolly Carpenter MD DATE OF DISCHARGE: 11/14/2017 ADMITTING DIAGNOSIS: Severe degenerative osteoarthritis of the left knee. DISCHARGE DIAGNOSIS: Severe degenerative osteoarthritis of the left knee. HISTORY OF PRESENT ILLNESS: Mr. Clinton is a 62-year-old male who presented to the orthopedic clinic for evaluation by Dr. Rolly Carpenter regarding progressive bilateral knee pain, left greater than right. He states the pain has been bothering him for many years and is currently inhibiting his ability to ambulate safely. He notes his symptoms are exacerbated by weightbearing activities. He has no alleviating factors, although in the past he has tried medications, bracing, physical therapy, home exercise program and injections without relief of symptoms. He does have x-ray evidence of severe degenerative osteoarthritis of the left knee. While in the office, the patient was counseled his diagnosis and treatment options. Risks, benefits, and indications were discussed. The patient did elect to proceed with surgical intervention to include a left total knee arthroplasty. DATE OF SURGERY: 11/14/2017, left total knee arthroplasty. POSTOP: After surgery, the patient was admitted to [facility] where he received appropriate medical management, pain control, DVT prophylaxis, as well as physical therapy. DISCHARGE: Once been discharged from the hospital, the patient is cleared to go home. He is in stable condition. He may weight bear as tolerated. He has been instructed on wound care management. He has been provided prescriptions for pain control and DVT prophylactic medication. He has also been provided a followup appointment approximately 2 weeks from date of surgery. The patient has asked appropriate questions, which have been answered. The patient has been discharged. Dictated by CINTHIA Mehta Rolly Carpenter MD JWM/KD , 07:48 AM , 07:58 AM
== END 2017-11-14 15:02 | disposition home health service (06) ==
LOC: HSDI 05:23 → N06 12:44
PROVIDERS: ADMIT Orthopaedic Surgery Sports Medicine; ATTEND Orthopaedic Surgery Sports Medicine